=== PATIENT | female | born 1970 | race Caucasian/White ===

== ENCOUNTER → 2017-03-01 14:53 | Outpatient (CLI) | payer OTHER | END | disposition home or self-care (01) | LOC: D.MAMMO 02-28 14:45 | DX: Z12.31 Encounter for screening mammogram for malignant neoplasm of breast (principal) ==

== ENCOUNTER 2017-04-12 08:59 | Outpatient (CLI) | payer OTHER | END 2017-04-12 23:59 | disposition home or self-care (01) | LOC: D.MAMMO 08:59 | DX: R92.8 Other abnormal and inconclusive findings on diagnostic imaging of breast (principal) ==

== ENCOUNTER → 2017-07-22 09:48 | Outpatient (CLI) | payer OTHER | END | disposition home or self-care (01) | LOC: D.RT 01-19 13:00 → D.RAD 01-19 13:00 → D.RT 09:48 | DX: J45.909 Unspecified asthma, uncomplicated (principal) ==

== ENCOUNTER → 2018-04-19 14:42 | Outpatient (CLI) | payer OTHER | END | disposition home or self-care (01) | LOC: D.RAD 14:42 | DX: F17.290 Nicotine dependence, other tobacco product, uncomplicated (principal) ==

== ENCOUNTER → 2018-04-24 23:48 | Outpatient (CLI) | payer OTHER | END | disposition home or self-care (01) | LOC: D.MAMMO 10:00 | DX: Z12.31 Encounter for screening mammogram for malignant neoplasm of breast (principal) ==

== ENCOUNTER → 2018-11-24 18:09 | Outpatient (CLI) | payer BC | END | disposition home or self-care (01) | LOC: D.RAD 18:09 | DX: R10.9 Unspecified abdominal pain (principal) ==

== ENCOUNTER → 2018-12-08 06:55 | Outpatient (CLI) | payer BC | END | disposition home or self-care (01) | LOC: D.MRI 06:55 | DX: R16.0 Hepatomegaly, not elsewhere classified (principal) ==